=== PATIENT | female | born 1950 | race Caucasian/White ===

== ENCOUNTER 2020-09-20 09:52 | Outpatient (CLI) | payer MEDICARE ==
--- NOTE | 2020-09-20 20:19 | RAD ---
RIGHT HIP TWO VIEWS: Date: 09-20-2020 FINDINGS: No fracture, dislocation, or joint space narrowing was seen. The articular surfaces are smooth. The a mount of arthritic change present is not impressive. IMPRESSION: No acute finding. POS: HOME
== END 2020-09-20 09:53 | disposition home or self-care (01) ==
LOC: BURRAD 09:52
PROVIDERS: ATTEND Physician Assistant
DX: M25.551 Pain in right hip (principal)